=== PATIENT | male | born 2000 | race Two or more races ===

== ENCOUNTER 2023-03-02 14:06 | Emergency (ER) | payer OTHER ==
[~2023-03-02] VITALS: Ht 172.7 cm; Wt 77.1 kg
[2023-03-02] MEDS ORDERED: GILPHEX TR 3901 EACH (15:01)
[2023-03-02] MEDS ORDERED: DOXYCYCLINE HY100 M2 (15:01)
[2023-03-02 16:30] LABS: HEMATOCRIT 45.2 % (39.0-48.0); HEMOGLOBIN 15.6 g/dL (13-16.00); MEAN CELL VOLUME 84.1 fL (80.0-100.00); MEAN CORPUSCULAR HEMOGLOBIN 29.1 pg (27.00-32.0); MEAN CORPUSCULAR HGB CONC 34.6 g/dl (32.0-36.0); PLATELET COUNT 200 K/uL (150-450); RED BLOOD COUNT 5.37 M/uL (4.00-6.00); RED CELL DISTRIBUTION WIDTH 13.1 % (11.5-14.5)
[2023-03-02 16:47] LABS: CALCIUM 9.9 mg/dL (8.5-10.1); CREATININE SERUM 0.98 mg/dL (0.70-1.30); GFR 93.97; POTASSIUM 3.72 mEq/L (3.5-5.1)
[2023-03-02] MEDS ORDERED: ZOFRAN8 MG PO (17:33)
[2023-03-02] MEDS ORDERED: PEPCID AC20 MG PO (17:33)
[2023-03-02] MEDS ORDERED: DICY20TA PO (17:33)
== END 2023-03-02 18:23 | disposition home or self-care (01) ==
LOC: ER 14:07
PROVIDERS: General Practice
DX: K52.89 Other specified noninfective gastroenteritis and colitis (principal); R10.84 Generalized abdominal pain